=== PATIENT | male | born 1980 | race Caucasian/White ===

== ENCOUNTER 2018-01-01 07:00 | Day surgery (SDC) | payer OTHER ==
[2018-01-01] VITALS (7 sets, daily range): BP systolic 113–142; BP diastolic 41–77; PULSE 54–94; RESP 18–20; TEMP 97.8–98; O2SAT 92–95
[~2018-01-01] VITALS: Ht 185.4 cm; Wt 159.0 kg
[2018-01-01] MEDS ORDERED: LIDOCAINE HCL 1% 10 ML VIAL OTHER ONE (07:01)
[2018-01-01] MEDS ORDERED: METO1TAB42 PO (07:45)
[2018-01-01] MEDS ORDERED: ceFAZolin 2 GM in NS 100 ML IV SCH (08:00)
[2018-01-01] MEDS ORDERED: SODIUM CHLOR 0.9% 1000 ML INJ 1,000 ML IV SCH (08:15)
[2018-01-01 08:26] LABS: AUTOMATED NEUTROPHIL # 7.6 TH/MM3 (1.8-7.7); BASOPHIL # 0.1 TH/MM3 (0-0.2); BASOPHIL % 0.6 % (0.0-2.0); EOSINOPHIL # 0.4 TH/MM3 (0-0.4); EOSINOPHIL % 3.1 % (0.0-4.0); HEMATOCRIT 45.9 % (39.0-51.0); HEMOGLOBIN 15.8 GM/DL (13.0-17.0); LYMPH % 24.3 % (9.0-44.0); LYMPHOCYTE # 2.8 TH/MM3 (1.0-4.8); MEAN CELL VOLUME 87.2 FL (80.0-100.0); MEAN CORPUSCULAR HEMOGLOBIN 29.9 PG (27.0-34.0); MEAN CORPUSCULAR HGB CONC 34.3 % (32.0-36.0); MONO % 7.2 % (0.0-8.0); MONOCYTE # 0.8 TH/MM3 (0-0.9); NEUT % 64.8 % (16.0-70.0); PLATELET COUNT 211 TH/MM3 (150-450); RED BLOOD COUNT 5.27 MIL/MM3 (4.50-5.90); RED CELL DISTRIBUTION WIDTH 13.3 % (11.6-17.2); WHITE BLOOD COUNT 11.7 TH/MM3 (4.0-11.0)
[2018-01-01] MEDS ORDERED: LACTATED RINGER'S 1000 ML IV PRN (08:30)
[2018-01-01] MEDS ORDERED: CHLORHEXIDINE GLUCONATE 2 % 1 PACK (2 CLOTHS) TOPICAL PRN (08:30)
[2018-01-01] MEDS ORDERED: METOPROLOL TARTRATE 25 MG TAB PO PRN (08:30)
[2018-01-01] MEDS ORDERED: POVIDONE IODINE 5% (ANTISEPSIS KIT) 4 APPLICATIONS EACH NARE PRN (08:30)
[2018-01-01] MEDS ORDERED: SODIUM CHLORID 0.9% 500 ML IV PRN (08:30)
[2018-01-01 08:36] LABS: PROTHROMBIN TIME - PATIENT 10.3 SEC (9.8-11.6)
[2018-01-01 08:42] LABS: CALCIUM 7.9 MG/DL (8.5-10.1); CREATININE 0.74 MG/DL (0.60-1.30)
[2018-01-01] MEDS ORDERED: NITR0.4S SL (08:43)
[2018-01-01] MEDS ORDERED: LOSA50TA PO (08:43)
[2018-01-01] MEDS ORDERED: HYDR-3577 PO (08:43)
[2018-01-01] MEDS ORDERED: CELE20TA PO (08:43)
[2018-01-01] MEDS ORDERED: AMLO10 PO (08:43)
--- NOTE | 2018-01-01 10:48 | EKG ---
Date Performed: 01/01/2018 Time Performed: 07:39:12 PTAGE: 37 years EKG: SINUS BRADYCARDIA WITH FIRST DEGREE AV BLOCK MODERATE INTRAVENTRICULAR CONDUCTION DELAY ABN ORMAL ECG NO PREVIOUS TRACING DOCTOR: Lionel Meadows Interpretating Date/Time 01/01/2018 10:46:32
[2018-01-01] MEDS ORDERED: HYDROmorphone HCL 2 MG TAB PO PRN (11:45)
[2018-01-01] MEDS ORDERED: MIDAZOLAM HCL 2 MG/2 ML VIAL ONE (11:45)
[2018-01-01] MEDS ORDERED: *morphine SULFATE 4 MG/ML PERIprocedure ONLY ONE (12:09)
--- NOTE | 2018-01-01 12:14 | RADRPT ---
EXAM DATE/TIME: 01/01/2018 10:40 This report includes an Addendum and supersedes previous reports for this exam. [facility] COMPARISON: No previous studies available for comparison. INDICATIONS : Left renal mass. BIOPSY SITE: Left renal Anesthesia and pain control was provided by the Anesthesia department. DEVICE(S): 1.) 18 gauge Temno core biopsy needle MEDICAL HISTORY : Hypertension. Cardiovascular disease. SURGICAL HISTORY : None. ENCOUNTER: Initial ACUITY: 1 day PAIN SCORE: 0/10 LOCATION: Left renal A total of two core specimen(s) were obtained and sent to the laboratory for pathologic evaluation. PROCEDURE: 1. CT guided renal biopsy. Prior to the procedure informed consent was obtained. Any appropriate prior imaging studies were rev iewed. Using automated exposure control and adjustment of the mA and/or kV according to patient size, radiat ion dose was kept as low as reasonably achievable to obtain optimal diagnostic quality images. DICOM format image data is available electronically for review and comparison. The site was prepped in a sterile fashion. Full sterile technique was used, including cap, mask, driss rile gloves and gown and a large sterile sheet. Hand hygiene and 2% chlorhexidine and/or betadine/al cohol prep was utilized per protocol for cutaneous antisepsis. The skin and subcutaneous tissues wer e infiltrated with local anesthetic solution. With CT guidance the previously identified target was localized. Biopsy was performed using the presc ribed needle as above. Adequate hemostasis was obtained with compression at the puncture site. Follow-up CT scan reveals minimal perinephric hematoma. The patient was left on the scanner and resca nned after 5 minutes delay and there was no change in the small perinephric hematoma. The patient tolerated the procedure well and was taken to the anesthesia recovery area in good stable condition. CONCLUSION: Uncomplicated CT guided biopsy. Yunier Diaz MD on January 01, 2018 at 12:10 Board Certified Radiologist. This report was verified electronically. ADDENDUM: The biopsy results came back clear cell carcinoma nuclear grade I-II/IV. Because of the size of the mass, the patient is not a candidate for percutaneous ablation treatment o f any kind. He will need to be considered for laparoscopic or open surgical treatment. Yunier Diaz MD on January 03, 2018 at 14:48 Board Certified Radiologist. This report was verified electronically.
[2018-01-01] MEDS ORDERED: PILL SPLITTER OTHER PRN (12:30)
[2018-01-01 12:34] LABS: AUTOMATED NEUTROPHIL # 9.9 TH/MM3 (1.8-7.7); BASOPHIL % 0.2 % (0.0-2.0); EOSINOPHIL # 0.1 TH/MM3 (0-0.4); EOSINOPHIL % 0.7 % (0.0-4.0); HEMATOCRIT 47.2 % (39.0-51.0); HEMOGLOBIN 15.8 GM/DL (13.0-17.0); LYMPH % 10.2 % (9.0-44.0); LYMPHOCYTE # 1.2 TH/MM3 (1.0-4.8); MEAN CORPUSCULAR HEMOGLOBIN 29.9 PG (27.0-34.0); MEAN CORPUSCULAR HGB CONC 33.6 % (32.0-36.0); MONO % 2.1 % (0.0-8.0); MONOCYTE # 0.2 TH/MM3 (0-0.9); NEUT % 86.8 % (16.0-70.0); PLATELET COUNT 184 TH/MM3 (150-450); RED CELL DISTRIBUTION WIDTH 13.9 % (11.6-17.2); WHITE BLOOD COUNT 11.4 TH/MM3 (4.0-11.0)
[2018-01-01] MEDS ORDERED: DO NOT ADM ANY ANTICOAGULANT DRUGS PRN (12:45)
[2018-01-01 14:05] LABS: AUTOMATED NEUTROPHIL # 16.9 TH/MM3 (1.8-7.7); BASOPHIL # 0.1 TH/MM3 (0-0.2); BASOPHIL % 0.5 % (0.0-2.0); EOSINOPHIL % 0.3 % (0.0-4.0); HEMATOCRIT 49.2 % (39.0-51.0); HEMOGLOBIN 16.7 GM/DL (13.0-17.0); LYMPH % 6.5 % (9.0-44.0); LYMPHOCYTE # 1.2 TH/MM3 (1.0-4.8); MEAN CELL VOLUME 89.1 FL (80.0-100.0); MEAN CORPUSCULAR HEMOGLOBIN 30.2 PG (27.0-34.0); MEAN CORPUSCULAR HGB CONC 33.9 % (32.0-36.0); MEAN PLATELET VOLUME 8.9 FL (7.0-11.0); MONO % 1.7 % (0.0-8.0); MONOCYTE # 0.3 TH/MM3 (0-0.9); PLATELET COUNT 206 TH/MM3 (150-450); RED BLOOD COUNT 5.52 MIL/MM3 (4.50-5.90); RED CELL DISTRIBUTION WIDTH 13.3 % (11.6-17.2); WHITE BLOOD COUNT 18.6 TH/MM3 (4.0-11.0)
== END 2018-01-01 16:11 | disposition home or self-care (01) ==
LOC: HROP 07:00 → HRIP 07:01 → HROP 16:11
DX: C64.2 Malignant neoplasm of left kidney, except renal pelvis (principal); I10 Essential (primary) hypertension; I25.10 Atherosclerotic heart disease of native coronary artery without angina pectoris; K21.9 Gastro-esophageal reflux disease without esophagitis; F17.200 Nicotine dependence, unspecified, uncomplicated; Z01.810 Encounter for preprocedural cardiovascular examination; Z01.818 Encounter for other preprocedural examination
CPT/HCPCS: 00860; 50200; 77012; 80048; 85025; 85610; 85730; 88305; 93005; J0690; J2250; J2270; J3010; J7030

== ENCOUNTER 2018-05-12 20:17 | Observation (INO) ==
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
--- NOTE | 2018-05-12 20:48 | XR ---
EXAM DATE: 05/12/2018 8:42 PM EDT AGE/SEX: 38 years / Male INDICATIONS: Chest pain CLINICAL DATA: This is the patient's initial encounter. Patient reports that signs and symptoms have been present for 4 - 6 days and indicates a pain score of 5/10. MEDICAL/SURGICAL HISTORY: Hypertension. None. COMPARISON: No prior exams available for comparison. FINDINGS: Single AP view of the chest. The lungs are clear. Mild cardiac silhouette enlargement. No evidence of pleural effusion or pneumothorax. CONCLUSION: Mild cardiac silhouette enlargement. No other acute cardiopulmonary disease identified. Electronically signed by: Jeremy To MD 05/12/2018 8:47 PM EDT
[2018-05-12 21:07] LABS: Baso % (Auto) 0.3 % (0.0-2.0); Eos # (Auto) 0.2 th/mm3 (0.0-0.4); Eos % (Auto) 1.5 % (0.0-4.0); Hematocrit 44.9 % (39.0-51.0); Hemoglobin 15.4 gm/dL (13.0-17.0); Lymph # (Auto) 3.1 th/mm3 (1.0-4.8); Lymph % (Auto) 19.5 % (9.0-44.0); Mean Corpuscular HGB Conc 34.3 % (32.0-36.0); Mean Corpuscular Volume 87.4 fL (80.0-100.0); Mean Platelet Volume 8.6 fL (7.0-11.0); Neut # (Auto) 11.6 th/mm3 (1.8-7.7); Neut % (Auto) 72.7 % (16.0-70.0); Platelet Count 343 th/mm3 (150-450); Red Blood Count 5.13 mil/mm3 (4.50-5.90); Red Cell Distribution Width 13.2 % (11.6-17.2); White Blood Count 15.9 th/mm3 (4.0-11.0)
[2018-05-12 21:25] LABS: Alanine Aminotransferase 30 U/L (12-78)
[2018-05-12 21:29] LABS: Alkaline Phosphatase 87 U/L (45-117); Total Protein 7.2 g/dL (6.4-8.2)
[2018-05-12 21:32] LABS: Albumin 3.6 g/dL (3.4-5.0); Anion Gap 11 meq/L (5-15); Aspartate Aminotransferase 26 U/L (15-37); Blood Urea Nitrogen 14 mg/dL (7-18); Calcium 8.2 mg/dL (8.5-10.1); Carbon Dioxide 23.5 meq/L (21.0-32.0); Chloride 107 meq/L (98-107); Glomerular Filtration Rate 89 mL/min (>89); Glucose,Random 132 mg/dL (74-106); Magnesium 2.1 mg/dL (1.5-2.5); Potassium 3.7 meq/L (3.5-5.1); Sodium 141 meq/L (136-145)
[2018-05-13 00:43] LABS: Creatine Kinase 65 U/L (39-308)
[2018-05-13 03:56] LABS: Creatine Kinase 56 U/L (39-308)
[2018-05-13 08:01] VITALS: RESP 18
[2018-05-13] MEDS ORDERED: amLODIPine 10 MG Tablet PO SCH (09:00)
[2018-05-13] MEDS ORDERED: Citalopram 20 MG Tablet PO SCH (09:00)
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
[2018-05-13] MEDS ORDERED: Metoprolol Tartrate 50 MG Tablet PO SCH (09:30)
[2018-05-13] MEDS ORDERED: Aspirin 325 MG Tablet PO SCH (09:30)
[2018-05-13] MEDS ORDERED: Regadenoson Inj 0.4 MG/5 ML Syringe IV.PUSH ONE (09:59)
--- NOTE | 2018-05-13 11:39 | NM ---
EXAM DATE: 05/13/2018 11:33 AM EDT AGE/SEX: 38 years / Male INDICATIONS:Angina. . Chest pain. CLINICAL DATA: This is the patient's initial encounter. Patient reports that signs and symptoms have been present for 1 day and indicates a pain score of 2/10. MEDICAL/SURGICAL HISTORY: Hypertension. VArdiomyopathy and renal cancer. None. COMPARISON: No prior exams available for comparison. DOSE: 11.0 mCi Tc 99m Myoview at rest 35.0 mCi [id number] at stress 0.4 mg Lexiscan STRESS SYMPTOMS: Shortness of breath. EJECTION FRACTION: 51 % TECHNIQUE: The patient underwent pharmacologic stress with infusion of prescribed dose. Continuous ECG tracing was monitored during stress. Gated SPECT imaging was performed after stress and conventi onal SPECT imaging was performed at rest. The examination was performed on a SPECT/CT scanner, both attenuation and non-corrected datasets were reviewed. FINDINGS: The gated cine loop images demonstrate no focal wall motion abnormality. Left ventricular ejection fr action is calculated at 51%. The cardiac SPECT stress and rest images demonstrate small fixed defect involving the watershed area between the anterior and lateral hernandez suggesting LAD infarct. Clinical correlation is recommended. N o reversible thinning is noted to suggest ischemia. RISK CATEGORY: Low (<1% Annual Motality Rate) CONCLUSION: 1. Small fixed defect involving the watershed area between the anterior and lateral hernandez suggesting LAD infarct. Clinical correlation is recommended. 2. No ischemia noted. Electronically signed by: Bear Farris MD 05/13/2018 11:37 AM EDT
[2018-05-13 11:52] VITALS: BP 166/90; PULSE 70; TEMP 98.8; O2SAT 95
--- NOTE | 2018-05-14 16:55 | ECG ---
Date Performed: 05/13/2018 Time Performed: 03:27:29 PTAGE: 38 years EKG: Sinus rhythm MODERATE INTRAVENTRICULAR CONDUCTION DELAY BORDERLINE ECG Since PREVIOUS TRACING , no significant change noted DOCTOR: Gabrielle Benoit Interpretating Date/Time 05/14/2018 16:53:29
--- NOTE | 2018-05-14 16:55 | ECG ---
Date Performed: 05/13/2018 Time Performed: 00:09:34 PTAGE: 38 years EKG: Sinus rhythm POSSIBLE INFERIOR MYOCARDIAL INFARCTION BORDERLINE ECG Since PREVIOUS TRACING , no significant change noted PREVIOUS TRACIN05/12/2018 20.26 DOCTOR: Gabrielle Benoit Interpretating Date/Time 05/14/2018 16:54:28
--- NOTE | 2018-05-14 16:56 | ECG ---
Date Performed: 05/12/2018 Time Performed: 20:26:43 PTAGE: 38 years EKG: Sinus rhythm NONSPECIFIC T-WAVE ABNORMALITY BORDERLINE ECG Since PREVIOUS TRACING , no significant change noted PREVIOUS TRACIN01/01/2018 07.39 DOCTOR: Gabrielle Benoit Interpretating Date/Time 05/14/2018 16:55:23
== END 2018-05-13 14:02 | disposition home or self-care (01) ==
LOC: NEPC 20:17 → NEDA 20:17 → NEPGCP 05-13 00:17